=== PATIENT | female | born 1990 | race Caucasian/White ===

== ENCOUNTER 2019-11-14 18:38 | Emergency (ER) | payer BC ==
[2019-11-14] MEDS ORDERED: ACETAMINOPHEN 325 MG TABLET PO ONE ×2 (19:29→19:57)
[2019-11-14] MEDS ORDERED: IBUPROFEN 600 MG TABLET PO ONE (19:53)
[2019-11-14] MEDS ORDERED: AMOXICILLIN TR/POT CLAVULANATE 875-125 MG TAB PO ONE (19:56)
[2019-11-14] MEDS ORDERED: HYDROCODONE/ACETAMINOPHEN 5-325 MG TABLET PO ONE (19:57)
--- NOTE | 2019-11-14 19:58 | ER Document Report ---
HPI - HPI Time Seen by Provider: 11/14/19 19:50 Pain Level: 5 Context: Patient is a 28-year-old female who presents emergency department after a dog bite. Patient states that her dog bit her. Her dog is up-to-date on their rabies vaccine. She is up-to-date on her tetanus vaccine. She states that her dogs were in a fight and she went to go break it up, and that is when the dog bit her. States that she has a hard time rotating - ROS Systems Reviewed and Negative: Yes All other systems reviewed and negative - CONSTITUTIONAL Constitutional: REPORTS: Fever - here in the ED. DENIES: Chills - REPRODUCTIVE LMP: 1 wk ago Reproductive: DENIES: : - MUSCULOSKELETAL Musculoskeletal: REPORTS: Extremity pain - Left forearm - DERM Skin Color: Normal Skin Problems: Abrasion - Left forearm Past Medical History - General Information source: Patient - Social History Smoking Status: Never Smoker Frequency of alcohol use: Rare Drug Abuse: None Family History: Reviewed & Not Pertinent Vertical Provider Document - CONSTITUTIONAL Agree With Documented VS: Yes Exam Limitations: No Limitations General Appearance: No Apparent Distress - HEENT HEENT: Atraumatic, Normocephalic, PERRLA - RESPIRATORY Respiratory: No Respiratory Distress - CARDIOVASCULAR Cardiovascular: Regular Rate, Regular Rhythm Pulses: Normal: Radial - MUSCULOSKELETAL/EXTREMETIES Musculoskeletal/Extremeties: FROM, Tender - Left forearm - NEURO Level of Consciousness: Awake, Alert, Appropriate Motor/Sensory: No Motor Deficit, No Sensory Deficit - DERM Integumentary: Warm, Dry, Rash - Abrasians to Left forearm. Course - Re-evaluation Re-evalutation: 11/14/19 21:21 There is no fracture noted; patient is able to flex and extend all digits with no difficulty. Patient is able to move forearm now with pain medication on board. Capillary refill less than 3 seconds. Radial pulse 2+. No vascular compromise noted. Will start her on augmentin. Follow-up precautions were given. Verbal discharge instructions were given to the patient. They verbalized understanding. They are stable for discharge. - Vital Signs Vital signs: Temp Pulse Resp BP Pulse Ox 101.1 F H 109 H 20 100 11/14/19 19:20 11/14/19 19:20 11/14/19 19:20 11/14/19 19:20 Discharge - Discharge Clinical Impression: Dog bite Qualifiers: Encounter type: initial encounter Qualified Code(s): W54.0XXA - Bitten by dog, initial encounter Condition: Stable Disposition: HOME, SELF-CARE Additional Instructions: Please monitor very closely for any signs of infection from your dog bite including spreading redness from the area, pus from the wound, or worsening pain. Clean the area twice daily with soap and water and then apply topical antibiotic ointment. Please take all the antibiotics that you were prescribed until they are gone. Follow-up with your primary care physician. Take ibuprofen 600 mg, acetaminophen 650 mg every 6 hours. You can take [place] 1 tablet for extreme pain. Prescriptions: Amoxicillin/Potassium Clav [Augmentin 875-125 Tablet] 1 tab PO BID #14 tab Hydrocodone/Acetaminophen [[place] 5-325 mg Tablet] 1 tab PO ASDIR PRN #12 tablet PRN Reason: Forms: Return to Work Referrals: LOIS BANUELOS FNP-[facility] [Primary Care Provider] - Follow up in 1 week
--- NOTE | 2019-11-14 20:35 | RADIOLOGY REPORT (SQ) ---
EXAM DESCRIPTION: XR FOREARM 2 VIEWS COMPLETED DATE/TME: 11/14/2019 19:53 CLINICAL HISTORY: 28 years Female Dog bite COMPARISON: None. TECHNIQUE: LEFT forearm, two views FINDINGS: No acute fractures or dislocations are identified. No osseous destructive lesions. IMPRESSION: No foreign object noted No acute fracture is identified.
[2019-11-14 21:22] VITALS: BP 152/82
== END 2019-11-14 21:55 | disposition home or self-care (01) ==
LOC: ER 18:38
DX: S50.872A Other superficial bite of left forearm, initial encounter (principal); M79.632 Pain in left forearm; W54.0XXA Bitten by dog, initial encounter; Y93.K9 Activity, other involving animal care; R50.9 Fever, unspecified
CPT/HCPCS: 99284; 73090; J3490